=== PATIENT | male | born 1970 | race African-American/Black ===

== ENCOUNTER → 2016-11-18 | Outpatient (CLI) | payer OTHER ==
[~2016-11-18] MED LIST: AMBIEN 10MG10 MG PO; PRINIVIL20 MG PO
== END ==
LOC: COL.VAS 11-09 08:15
DX: R06.02 Shortness of breath (principal); R94.39 Abnormal result of other cardiovascular function study; R94.2 Abnormal results of pulmonary function studies

== ENCOUNTER 2018-03-17 05:56 | Day surgery (SDC) | payer OTHER ==
[~2018-03-17] VITALS: Ht 170.2 cm; Wt 100.3 kg
[2018-03-17 07:11] VITALS: BP 155/103; PULSE 108; TEMP 98.8
[2018-03-17] MEDS ORDERED: METHOTREXA2.5 MG/TAB PO (07:24)
[2018-03-17] MEDS ORDERED: RT SPIRIVA18 MCG IH (07:24)
[2018-03-17] MEDS ORDERED: PAXIL 30MG30 MG PO (07:25)
[2018-03-17] MEDS ORDERED: MINIPRESS2 MG PO (07:25)
[2018-03-17] MEDS ORDERED: REVATIO20 MG PO (07:26)
[2018-03-17] MEDS ORDERED: FOLIC ACID 11 MG/TA1 PO (07:27)
[2018-03-17 09:25] VITALS: BP 146/89; PULSE 107; TEMP 98.4
[2018-03-17 09:40] VITALS: BP 141/91; PULSE 109
[2018-03-17 09:55] VITALS: BP 153/106; PULSE 101
[2018-03-17 10:10] VITALS: BP 158/109; PULSE 95
== END 2018-03-17 10:20 | disposition home or self-care (01) ==
LOC: SDCO 05:56
DX: Z12.11 Encounter for screening for malignant neoplasm of colon (principal); D50.9 Iron deficiency anemia, unspecified; K63.5 Polyp of colon; K21.9 Gastro-esophageal reflux disease without esophagitis; K44.9 Diaphragmatic hernia without obstruction or gangrene
CPT/HCPCS: OP; J2250; J2405; J3010; J7030

== ENCOUNTER → 2018-06-06 | Outpatient (CLI) | payer OTHER ==
[~2018-06-06] MED LIST changes: +FOLIC ACID 11 MG/TA1 PO; +METHOTREXA2.5 MG/TAB PO; +MINIPRESS2 MG PO; +PAXIL 30MG30 MG PO; +REVATIO20 MG PO; +RT SPIRIVA18 MCG IH
== END ==
LOC: COL.RAD 09:29
DX: Z02.71 Encounter for disability determination (principal); M17.11 Unilateral primary osteoarthritis, right knee

== ENCOUNTER 2018-07-30 09:27 | Emergency (ER) | payer OTHER ==
[~2018-07-30] VITALS: Ht 170.2 cm; Wt 93.2 kg
[2018-07-30 09:33] VITALS: TEMP 98.4
[2018-07-30] MEDS ORDERED: ACIPHEX20 MG PO (10:00)
[2018-07-30] MEDS ORDERED: PERCOCET 325 MG1 TA2 PO (10:27)
[2018-07-30] MEDS ORDERED: ASPERCREME1 EACH TP (10:35)
[2018-07-30 11:11] VITALS: BP 133/82; PULSE 112
== END 2018-07-30 11:11 | disposition home or self-care (01) ==
LOC: COL.ER 09:27
DX: S22.42XA Multiple fractures of ribs, left side, initial encounter for closed fracture (principal); M06.9 Rheumatoid arthritis, unspecified; W19.XXXA Unspecified fall, initial encounter; W22.8XXA Striking against or struck by other objects, initial encounter; Y92.009 Unspecified place in unspecified non-institutional (private) residence as the place of occurrence of the external cause
CPT/HCPCS: A9284; J1885

== ENCOUNTER → 2018-11-09 | Outpatient (CLI) | payer OTHER ==
[~2018-11-09] VITALS: Ht 170.2 cm; Wt 90.0 kg
[~2018-11-09] MED LIST changes: +ACIPHEX20 MG PO; +ASPERCREME1 EACH TP; +MAG-OX 400400 MG/TAB PO; +MELATONIN5 M1 PO; +PERCOCET 325 MG1 TA2 PO
[2018-11-09 14:11] VITALS: BP 139/91; PULSE 94
--- NOTE | 2018-11-09 15:11 | NUR ---
patient returned to rad holding area, procedure was not done phlebotomy support tech states no fluid was found for radiologist to remove. pt dressed then discharged at this time
== END ==
LOC: COL.RAD 13:47
DX: J86.9 Pyothorax without fistula (principal); B96.89 Other specified bacterial agents as the cause of diseases classified elsewhere; Z79.899 Other long term (current) drug therapy; Z79.2 Long term (current) use of antibiotics; Z79.52 Long term (current) use of systemic steroids; Z87.09 Personal history of other diseases of the respiratory system

== ENCOUNTER 2018-12-28 07:17 | Outpatient (CLI) | payer OTHER ==
[~2018-12-28] VITALS: Ht 170.2 cm; Wt 96.7 kg
[~2018-12-28 07:17] MED LIST changes: +NEURONTIN100 MG/CAP PO
[2018-12-28 07:39] VITALS: BP 151/89; PULSE 100
[2018-12-28 08:15] VITALS: BP 131/92; PULSE 87
--- NOTE | 2018-12-28 08:15 | NUR ---
PT TO ROOM 9 POST LP. BAND AID TO MID BACK C/D/I. VSS AND [id number]. RESTING COMFORTABLY IN BED AT THIS TIME.
[2018-12-28 09:53] LABS: GLUCOSE,CSF 60 mg/dL (40-70); TOTAL PROTEIN,CSF 45 mg/dL (15-45)
--- NOTE | 2018-12-28 10:00 | NUR ---
PT VSS POST LP. SITE C/D/I.DISCHARGE INSTRUCTIONS REVIEWED AND SIGNED. PT WHEELED OUT SAFELY BY TRANSCRIPT CLERK WHERE HIS DAUGHTER WAS WAITING TO PICK HIM UP.
[2018-12-28 10:24] LABS: CSF APPEARANCE CLEAR; CSF COLOR COLORLESS; CSF RBC 24 /mm3 (0-0)
[2018-12-28 10:25] LABS: CSF MONONUCLEAR 100 % (70-100); CSF POLYMORPHONUCLEAR 0 % (0-6)
[2019-01-01 13:00] LABS: ALBUMIN CSF 24.1 mg/dL (<=27.0)
[2019-01-01 13:09] LABS: CSF IGG/ALBUMIN 0.15 (<=0.21); CSF,IGG 3.7 mg/dL (<=8.1)
[2019-01-01 13:15] LABS: CSF SYNTHESIS RATE 3.54 mg/24 h (<=12); CSF-IGG INDEX 0.6 (<=0.85); IGG/ALBUMIN SERUM 0.25 (<=0.40)
== END 2018-12-28 10:00 | disposition home or self-care (01) ==
LOC: COL.RAD 07:17
PROVIDERS: Psychiatry & Neurology Neurology
DX: G43.109 Migraine with aura, not intractable, without status migrainosus (principal)

== ENCOUNTER → 2019-06-06 | Outpatient (CLI) | payer OTHER | LOC: COL.CARD 12:42 | DX: G31.84 Mild cognitive impairment of uncertain or unknown etiology (principal); G43.909 Migraine, unspecified, not intractable, without status migrainosus ==

== ENCOUNTER 2022-05-28 08:19 | Day surgery (SDC) | payer OTHER ==
[~2022-05-28] VITALS: Ht 170.2 cm; Wt 88.6 kg
[2022-05-28 08:59] VITALS: BP 138/99; PULSE 100; TEMP 98.5
[2022-05-28] MEDS ORDERED: LUNESTA 1MG TAB1 MG PO (09:14)
[2022-05-28] MEDS ORDERED: VITAMIN D31000 IU PO (09:15)
[2022-05-28] MEDS ORDERED: COZAAR100 MG PO (09:15)
[2022-05-28] MEDS ORDERED: NORVASC 5MG5 MG/TAB PO (09:15)
[2022-05-28] MEDS ORDERED: OMEGA-3 1000 MG1 CAP PO (09:16)
[2022-05-28] MEDS ORDERED: PROZAC 20MG20 MG PO (09:17)
[2022-05-28] MEDS ORDERED: PREDNISONE 5MG5 MG PO (09:17)
[2022-05-28] MEDS ORDERED: BUSPAR10 MG PO (09:17)
[2022-05-28] MEDS ORDERED: CATAPRES 0.1MG0.1 MG PO (09:18)
[2022-05-28 10:05] VITALS: BP 116/79; PULSE 88; TEMP 98.5
--- NOTE | 2022-05-28 10:05 | NUR ---
Pt returned via cart to recliner in [facility]. A&O. VSS-see flowsheet. Warm blanket given and call light in reach. Pt given apple juice per request. Denies needs or complaints at this time.
[2022-05-28 10:20] VITALS: BP 132/89; PULSE 87
[2022-05-28 10:35] VITALS: BP 132/95; PULSE 84
--- NOTE | 2022-05-28 11:12 | NUR ---
VS remain stable. Pts IV removed and pressure dressing applied. in to visit post procedure. DC teaching completed, pt verbalized understanding. Pt dressed and taken via wheelchair to private vehicle for dc home with daughter to drive.
== END 2022-05-28 11:12 | disposition home or self-care (01) ==
LOC: SDCO 08:19
DX: K92.1 Melena (principal); D50.9 Iron deficiency anemia, unspecified; K64.1 Second degree hemorrhoids; K21.9 Gastro-esophageal reflux disease without esophagitis; K44.9 Diaphragmatic hernia without obstruction or gangrene; Z79.899 Other long term (current) drug therapy; Z87.891 Personal history of nicotine dependence
CPT/HCPCS: J7030